=== PATIENT | female | born 1950 | race Caucasian/White ===

== ENCOUNTER → 2016-11-23 | Outpatient (CLI) | payer MEDICARE, BC ==
--- NOTE | 2016-11-23 12:04 | XR ---
EXAMINATION TYPE: XR chest 2V DATE OF EXAM: 11/23/2016 11:44 AM COMPARISON: 10/16/2015 TECHNIQUE: PA and lateral views submitted. HISTORY: Breast cancer FINDINGS: The lungs are clear and there is no pneumothorax, pleural effusion, or focal pneumonia. Scoliosis a nd hyperinflation suggestive of COPD. Postsurgical change right axilla. Biapical pleural thickening s table. Hypertrophic and degenerative change of the spine. IMPRESSION: 1. No acute process.
--- NOTE | 2016-11-23 12:56 | MM ---
Reason for exam: history of breast cancer, mastectomy. Last mammogram was performed 1 year and 1 month ago. History: Patient is postmenopausal, has history of breast cancer at age 52, and has history of endometrial cancer at age 24. Family history of breast cancer in paternal aunt and breast cancer in maternal aunt. Silicone gel implants in both breasts, May 2006. Mastectomy of the right breast, October 09, 2002. Excisional biopsy of the right breast, 2002. Taking antineoplastic for 5 years beginning at age 52. Physical Findings: Nurse did not find any significant physical abnormalities on exam. MG Diag Mamm Implant LT w CAD CC, MLO, and ID view(s) were taken of the left breast. Prior study comparison: October 16, 2015, left breast MG 3d diag mammo imp w/cad LT. October 15, 2014, left breast MG diagnostic mammo LT w CAD. The breast tissue is heterogeneously dense. This may lower the sensitivity of mammography. No significant new findings when compared with previous films. These results were verbally communicated with the patient and result sheet given to the patient on 11/23/16. ASSESSMENT: Benign, BI-RAD 2 RECOMMENDATION: Follow-up diagnostic mammogram of the left breast in 1 year.
--- NOTE | 2016-11-23 13:33 | BD ---
EXAMINATION TYPE: MG DEXA axial skeleton. DATE OF EXAM: 11/23/2016 10:22 AM COMPARISON: NONE CLINICAL HISTORY: Height: 60.5 IN Weight: 89 LBS FRAX RISK QUESTIONS: Alcohol (3 or more units per day): NO Family History (Parent hip fracture): NO Glucocorticoids (More than 3mos): NO (Ex: prednisone, prednisolone, methylprednisolone, dexamethasone, and hydrocortisone). History of Fracture in Adulthood: NO Secondary Osteoporosis: 1. Type 1 Diabetes: NO 2. Hyperthyroidism: NO 3. Menopause before 45: YES TOTAL HYST. AGE 24 4. Malnutrition: NO 5. Chronic liver disease: NO Rheumatoid Arthritis: NO Current Tobacco Use: NO RISK FACTORS HISTORY OF: Family History of Osteoporosis: YES AUNT Active: YES Diet low in dairy products/other sources of calcium: YES Postmenopausal woman: AGE 24 MEDICATIONS: Additional Medications: VIT D, CALCIUM, VIT C EXAM MEASUREMENTS: Bone mineral densitometry was performed using the [employer] [facility]. Bone mineral density as measured about the Lumbar spine is: ----- L1-L4(G/cm2): 1.138 T Score Values are as follows: ----- L2: -0.6 ----- L3: -0.2 ----- L4: -0.5 ----- L1-L4: -0.3 Bone mineral density has: Decreased -2.1% since study of: 10/16/2015 Bone mineral density about the R hip (g/cm2): 0.825 Bone mineral density about the L hip (g/cm2): 0.792 T Score values are as follows: -----R Neck: -1.5 -----L Neck: -1.8 -----R Intertrochanter: -1.2 -----L Intertrochanter: -1.5 Bone mineral density has: Decreased -0.6% since study of: 10/16/2015 IMPRESSION: Osteopenia (T Score between -2.5 and -1 as noted by T score values There is slightly increased risk of fracture and the patient may be considered for treatment. Re-Screen 1-2 years. Bone density is diminished 0.6% within the bilateral hips of the comparison 2016. Bone density within the lumbar spine is diminished 2.1% from 2016. NOTE: T-SCORE=SD OF THE YOUNG ADULT MEAN.
== END | disposition home or self-care (01) ==
LOC: RADMAMWWP 10:17
PROVIDERS: ATTEND Internal Medicine Hematology & Oncology
DX: Z03.89 Encounter for observation for other suspected diseases and conditions ruled out (principal); C50.411 Malignant neoplasm of upper-outer quadrant of right female breast; M85.80 Other specified disorders of bone density and structure, unspecified site; N95.1 Menopausal and female climacteric states
CPT/HCPCS: 71020; 77080; G0206